=== PATIENT | female | born 1950 | race Hispanic/Latino ===

== ENCOUNTER 2023-04-05 09:06 | Outpatient (CLI) | payer OTHER | END 2023-04-05 19:11 | disposition home or self-care (01) | LOC: RESP 09:06 | PROVIDERS: ATTEND Internal Medicine | DX: R06.02 Shortness of breath (principal); I20.9 Angina pectoris, unspecified ==

== ENCOUNTER 2023-04-14 07:23 | Outpatient (CLI) | payer OTHER ==
[~2023-04-14] VITALS: Ht 175.3 cm; Wt 91.6 kg
== END 2023-04-14 20:36 | disposition home or self-care (01) ==
LOC: NM 07:23
PROVIDERS: ATTEND Internal Medicine
DX: R06.02 Shortness of breath (principal); I20.9 Angina pectoris, unspecified
CPT/HCPCS: A9500; J2785